=== PATIENT | female | born 1995 | race Caucasian/White ===

== ENCOUNTER 2020-10-26 21:47 | Emergency (ER) | payer BC, OTHER ==
[~2020-10-26] VITALS: Ht 152.4 cm; Wt 68.0 kg
[~2020-10-26 21:47] MED LIST: CLARITIN10 M3 PO; PROVENTIL 0.083%3 ML; Z.0.ADVAIR 100-501 E; Z.0.LIBRAX CAPSULE1; [UNRECOGNIZED DRUG - OTHER]; [UNRECOGNIZED DRUG - OTHER] PO
[2020-10-26] MEDS ORDERED: ONDANSETRON HCL 4 MG ORAL DISINTEGRATING TAB ONE (22:13)
[2020-10-26] MEDS ORDERED: ACETAMINOPHEN 325 MG TAB ONE ×2 (22:13→22:19)
[2020-10-26] MEDS ORDERED: ACETAMINOPHEN 325 MG TAB PO ONE (22:30)
[2020-10-26] MEDS ORDERED: ONDANSETRON HCL 4 MG ORAL DISINTEGRATING TAB PO ONE (22:30)
[2020-10-26] MEDS ORDERED: PENICILLIN V P500 MG PO (22:41)
[2020-10-26] MEDS ORDERED: DEXAMETHASONE SOD PHOS INJ 4 MG/ML VIAL IM ONE (22:45)
[2020-10-26] MEDS ORDERED: DEXAMETHASONE SOD PHOS INJ 4 MG/ML VIAL ONE (22:49)
== END 2020-10-26 22:54 | disposition home or self-care (01) ==
LOC: EDSEX 21:47 → FSED 22:23
DX: R50.9 Fever, unspecified (principal); J02.9 Acute pharyngitis, unspecified; K21.9 Gastro-esophageal reflux disease without esophagitis; J45.909 Unspecified asthma, uncomplicated; F17.210 Nicotine dependence, cigarettes, uncomplicated
CPT/HCPCS: 83518; 87400; 99283; J1100; Q0162